=== PATIENT | female | born 1985 | race Caucasian/White ===

== ENCOUNTER 2023-08-25 08:55 | Emergency (ER) | payer OTHER, MEDICAID, SELFPAY ==
[2023-08-25] VITALS (10 sets, daily range): BP systolic 89–129; BP diastolic 50–60; PULSE 62–78; RESP 16–26; TEMP 36.6; O2SAT 94–98; BMI 33.4
--- NOTE | 2023-08-25 09:15 | ED.EXTPRO ---
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 She is now working 2 jobs. She presents today with right leg swelling and foot pain. She denies any injury. She noticed it 4 days ago she continue to walk on it and stand and go to work. However today her foot is quite swollen. The left foot is mildly swollen but does not hurt as bad. It is not red. She denies any fever. She denies any swelling or weight gain. She reports that she is unable to lie flat at night secondary to back pain. She denies any shortness of breath or chest pain. No fever chills. Denies any history blood clots. Related Data Previous Rx's Medication Instructions Recorded furosemide 20 mg tablet 20 mg PO DAILY #4 tabs 08/25/23 Allergies Allergy/AdvReac Type Severity Reaction Status Date / Time acetaminophen [From Vicodin] Allergy Verified 08/25/23 09:09 atomoxetine [From Strattera] Allergy Verified 08/25/23 09:09 diphenhydramine Allergy Verified 08/25/23 09:09 [From Benadryl] hydrocodone [From Vicodin] Allergy Verified 08/25/23 09:09 morphine Allergy Verified 08/25/23 09:09 Penicillins Allergy Verified 08/25/23 09:09 Patient History Social History Smoking Status: Current every day smoker Smoking Status: Current every day smoker tobacco type: cigarettes and vaping Substance Use Type: former substance user and marijuana Exam Initial Vital Signs Initial Vital Signs: Vital Signs Temperature 97.9 F 08/25/23 08:59 Pulse Rate 75 08/25/23 08:59 Respiratory Rate 16 08/25/23 08:59 Blood Pressure 116/55 L 08/25/23 08:59 Pulse Oximetry 96 08/25/23 08:59 Oxygen Delivery Method Room Air 08/25/23 08:59 GENERAL: Alert 37-year-old female appears slightly older than stated age HEENT: Head atraumatic,EOMI, pupils reactive, face symmetric, moist mucous membranes CARDIOVASCULAR: Regular rate and rhythm without murmurs, rubs or gallops. RESPIRATORY: Breath sounds equal bilaterally, no wheezes rales or rhonchi. ABDOMEN: Soft, nontender. Normoactive bowel sounds all 4 quadrants. No guarding or rebound. EXTREMITIES: Normal range of motion, no clubbing. Neurovascularly intact Right leg significantly more swollen than left leg distal pedal pulse present. No erythema. Bony abnormality NEUROLOGICAL: Alert and oriented x4.Normal gait and speech. Cranial nerves II through XII grossly intact. SKIN: Warm, dry, no laceration, no petechiae, no rashes or lesions. Course Orders Ordered: ED Orders 08/25/23 09:19 US periph venous low extrem rt Stat XR chest 1V Stat EKG-12 Lead Stat 08/25/23 09:38 Complete Blood Count AUTO DIFF Stat Comprehensive Metabolic Panel Stat D Dimer Stat Lipase Stat NT-proBNP (BNP-Adult 18+) Stat Troponin & CK Cardiac Panel Stat 08/25/23 10:08 PTT Partial Thromboplastin Ziyad Stat Prothrombin Time INR Stat 08/25/23 10:42 CT abdomen pelvis w con Stat Vital Signs Vital signs: Vital Signs - 8 hr 08/25/23 08:59 08/25/23 09:08 08/25/23 09:08 Temperature 97.9 F Pulse Rate 75 68 Respiratory Rate 16 Blood Pressure 116/55 L 129/60 Pulse Oximetry 96 98 Oxygen Delivery Method Room Air 08/25/23 09:30 08/25/23 09:30 08/25/23 10:00 Temperature Pulse Rate 78 69 Respiratory Rate 25 H Blood Pressure 118/59 L Pulse Oximetry 96 96 Oxygen Delivery Method 08/25/23 10:01 08/25/23 10:01 08/25/23 10:14 Temperature Pulse Rate 67 65 Respiratory Rate 22 24 Blood Pressure 95/50 L Pulse Oximetry 96 98 Oxygen Delivery Method 08/25/23 10:14 08/25/23 10:30 08/25/23 10:30 Temperature Pulse Rate 65 Respiratory Rate 18 Blood Pressure 101/59 L 104/54 L Pulse Oximetry 97 Oxygen Delivery Method 08/25/23 11:01 08/25/23 11:02 08/25/23 11:02 Temperature Pulse Rate 67 66 Respiratory Rate 26 H 23 Blood Pressure 106/55 L Pulse Oximetry 98 98 Oxygen Delivery Method 08/25/23 11:30 08/25/23 11:30 Temperature Pulse Rate 62 Respiratory Rate 18 Blood Pressure 89/54 L Pulse Oximetry 94 Oxygen Delivery Method MDM - Extremity (Nontraumatic) Lab Data 08/25/23 09:38 08/25/23 09:38 Labs: Lab Results 08/25/23 08/25/23 Range/Units 09:38 10:08 WBC 7.1 (4.5-11.0) X10^3/uL RBC 3.86 L (4.0-5.2) X10^6/uL Hgb 10.5 L (12.0-16.0) g/dL Hct 31.4 L (36-46) % MCV 81.3 (80-100) fL MCH 27.2 (26-34) PG MCHC 33.5 (30-36) % RDW 14.5 (11.6-14.8) % Plt Count 286 (150-400) X10^3/uL Neut % (Auto) 50.2 (50-75) % Lymph % (Auto) 35.2 (25-40) % [place] % (Auto) 7.4 (3-14) % Eos % (Auto) 6.2 H (2-4) % Baso % (Auto) 1.0 (0-2) % Neut # (Auto) 3500 (2208-7626) /uL Lymph # (Auto) 2500 (5338-7068) /uL [place] # (Auto) 500 (0-900) /uL Eos # (Auto) 400 (0-450) /uL Baso # (Auto) 100 (0-100) /uL PT 10.8 (10.1-12.7) SECONDS INR 0.9 (0.9-1.3) APTT 30 (26-36) SECONDS D-Dimer 461 (<500) ng/ml Sodium 134 L (137-145) mmol/L Potassium 4.1 (3.4-5.1) mmol/L Chloride 105 (98-107) mmol/L Carbon Dioxide 26 (22-32) mmol/L BUN 11 (7-17) mg/dL Creatinine 0.54 (0.52-1.04) mg/dL Estimated GFR > 60 (>60) mL/min BUN/Creatinine Ratio 20.4 (6-22) Glucose 92 (70-100) mg/dL Calcium 8.7 (8.4-10.2) mg/dL Total Bilirubin 0.1 L (0.2-1.3) mg/dL AST 18 (14-36) IU/L ALT 22 (<35) IU/L Alkaline Phosphatase 58 (38-126) U/L Total Creatine Kinase 97 (30-135) U/L Troponin I < 0.012 (0.01-0.034) ng/mL NT-Pro-B Natriuret Pep 461 H (<125) pg/mL Total Protein 5.9 L (6.3-8.2) g/dL Albumin 3.4 L (3.5-5.0) g/dL Globulin 2.5 (1.7-4.1) g/dL Albumin/Globulin Ratio 1.4 (1.0-2.8) Lipase 52 (23-300) U/L Point of Care Testing Test Results Negative Urine Dip Bedside Urine Glucose Negative Bedside Urine Bilirubin - Negative Bedside Urine Ketone - Negative Urine Specific [place] 1.005 Bedside Urine Occult Blood - Negative Bedside Urine pH 7.0 Bedside Urine Protein - Negative Bedside Urine Urobilinogen - Negative Bedside Urine Nitrite - Negative Bedside Urine Leukocytes ++ 125 Esterase MDM Narrative Medical decision making narrative: Patient 37-year-old female history of drug abuse presenting today with right leg swelling and pain. No fever the right leg is definitely more swollen than the left. Initial concern for DVT. Labs: No leukocytosis no anemia, D-dimer less than 500, BNP 460 1- troponin normal electrolytes imaging: Ultrasound negative for DVT chest x-ray negative. Abdominal CT does not show any intra-abdominal abnormality Patient presents today with right leg swelling and pain. Initial concern for DVT however ultrasound D-dimer negative, I think unlikely to be a DVT. CT abdomen pelvis done look for superior blockage. Which was negative. She does have some pitting edema in her left foot even though BNP is minimally elevated history of drug use will give her a few days of Lasix. Encouraged compression socks and elevation. Discharge Plan Departure Patient Disposition: Home Clinical Impression: Edema of lower extremity Instructions: Edema Activity Restrictions/Additional Instructions: *You have been diagnosed with swelling of leg *What to do: At this time elevate your legs wear compression socks. We will try on a few days water pill to help bring the swelling down. *Continue to take medications as directed Lasix 20 mg once a day for 4 days *Follow up with your primary care provider in 2-3 days or call [phone] *Return to ER if you should have increasing swelling pain redness chest pain shortness of breath abdominal or any new, worsening or concerning symptoms Prescriptions: New furosemide 20 mg tablet 20 mg PO DAILY Qty: 4 0RF Referrals: Miscellaneous,Doctor, MD [Primary Care Provider] - Stand Alone Forms: Patient Portal/API, Work Release Note
--- NOTE | 2023-08-25 09:19 | DI.RAD.S_ITS ---
PROCEDURE: XR CHEST 1V INDICATIONS: short of breath TECHNIQUE: One view of the chest was acquired. COMPARISON: None. FINDINGS: Surgical changes and devices: None. Lungs and pleura: Lungs are clear. No pleural effusions or pneumothorax. Mediastinum: Mediastinal contours appear normal. Heart size is normal. Bones and chest wall: No suspicious bony lesions. Overlying soft tissues appear unremarkable. IMPRESSION: Portable chest within normal limits for age. Approved by: Ricky Ochoa M.D. on 08/25/2023 at 8:35
--- NOTE | 2023-08-25 09:19 | DI.US.S_ITS ---
PROCEDURE: US PERIPH VENOUS LOW EXTREM RT INDICATIONS: swelling TECHNIQUE: Real-time imaging, as well as color and pulse Doppler interrogation, were performed of the lower extremity deep veins from the inguinal ligament to the popliteal fossa, with documentation of the visualized calf veins. COMPARISON: None. FINDINGS: The common femoral, femoral, popliteal, and the visualized calf veins are normally compressible, and free of intraluminal thrombus. Color and pulse Doppler demonstrate normal phasic intraluminal flow. There is normal augmentation response to distal compression maneuver. IMPRESSION: No findings of lower extremity deep venous thrombosis. Approved by: Ricky Ochoa M.D. on 08/25/2023 at 9:23
[2023-08-25 09:50] LABS: Add Manual Diff / Slide Review NO; Basophils Absolute Auto 100 /uL (0-100); Eosinophils Absolute Auto 400 /uL (0-450); Eosinophils Percent Auto 6.2 % (2-4); Hematocrit 31.4 % (36-46); Hemoglobin 10.5 g/dL (12.0-16.0); Lymphocytes Absolute Auto 2500 /uL (1100-4500); Lymphocytes Percent Auto 35.2 % (25-40); Mean Corpuscular HGB Conc 33.5 % (30-36); Mean Corpuscular Hemoglobin 27.2 PG (26-34); Mean Corpuscular Volume 81.3 fL (80-100); Monocytes Absolute Auto 500 /uL (0-900); Monocytes Percent Auto 7.4 % (3-14); Neutrophils Absolute Auto 3500 /uL (1500-7000); Neutrophils Percent Auto 50.2 % (50-75); Platelet Count 286 X10^3/uL (150-400); Red Blood Cell Count 3.86 X10^6/uL (4.0-5.2); Red Cell Distribution Width 14.5 % (11.6-14.8); White Blood Cell Count 7.1 X10^3/uL (4.5-11.0)
[2023-08-25 09:57] LABS: Alanine Aminotransferase 22 IU/L (<35); Albumin 3.4 g/dL (3.5-5.0); Albumin Globulin Ratio 1.4 (1.0-2.8); Alkaline Phosphatase 58 U/L (38-126); Aspartate Aminotransferase 18 IU/L (14-36); BUN Creatinine Ratio 20.4 (6-22); Bilirubin Total 0.1 mg/dL (0.2-1.3); Blood Urea Nitrogen 11 mg/dL (7-17); Calcium 8.7 mg/dL (8.4-10.2); Carbon Dioxide 26 mmol/L (22-32); Chloride 105 mmol/L (98-107); Creatine Kinase 97 U/L (30-135); Estimated Glomerular Filt Rate > 60 mL/min (>60); Globulin 2.5 g/dL (1.7-4.1); Glucose 92 mg/dL (70-100); HEMOLYSIS < 15 (0-50); Lipase 52 U/L (23-300); Potassium 4.1 mmol/L (3.4-5.1); Sodium 134 mmol/L (137-145); Total Protein 5.9 g/dL (6.3-8.2)
[2023-08-25 10:08] LABS: NT-proBNP (BNP-Adult 18+) 461 pg/mL (<125); Troponin I < 0.012 ng/mL (0.01-0.034)
[2023-08-25 10:22] LABS: INR 0.9 (0.9-1.3); Prothrombin Time 10.8 SECONDS (10.1-12.7)
[2023-08-25 10:24] LABS: PTT Partial Thromboplastin Tim 30 SECONDS (26-36)
[2023-08-25 10:36] LABS: D Dimer 461 ng/ml (<500)
--- NOTE | 2023-08-25 10:42 | DI.CT.S_ITS ---
PROCEDURE: CT ABDOMEN PELVIS W CON INDICATIONS: swelling, and Right leg swelling TECHNIQUE: After the administration of intravenous contrast, axial sections acquired from the lung bases to the pubic symphysis. Coronal and sagittal reformats were performed. For radiation dose reduction, the following was used: automated exposure control, adjustment of mA and/or kV according to patient size. COMPARISON: None. FINDINGS: Lower thorax: Mild bibasilar platelike atelectasis. Heart size normal. No hiatal hernia. Liver: Normal in size and attenuation. No contour deformity present. Biliary system: Calcified stones noted in the lumen of the gallbladder. No pericholecystic inflammatory change. No intra or extrahepatic bile duct dilation. Pancreas: Unremarkable without mass or inflammation evident. Spleen: Normal in size and density. Adrenals: Normal morphology and density. Reproductive system: Unremarkable as visualized. Physiologic endometrial thickening measures up to 1.3 cm Urinary system: Normal renal size and attenuation. No renal calculi, hydronephrosis, or solid mass present. Urinary bladder unremarkable. Gastrointestinal system: The bowel is unremarkable without evidence of bowel obstruction or inflammation. The stomach appears unremarkable. Moderate fecal debris throughout the colon Appendix: Normal appendix identified. No evidence of appendicitis. Peritoneal spaces: No mesenteric or retroperitoneal adenopathy. No free air. No free fluid. Vasculature: The IVC, aorta and iliac vasculature are unremarkable. Abdominal wall: Abdominal wall intact without evidence of ventral or inguinal hernias. Musculoskeletal: Normal bone mineralization. No acute fractures. Bilateral inguinal adenopathy measures up to 1.7 x 2.2 cm on the left IMPRESSION: 1. Moderate fecal debris throughout the colon without obstruction. 2. Bilateral inguinal adenopathy Approved by: Ricky Ochoa M.D. on 08/25/2023 at 10:17
== END 2023-08-25 11:52 | disposition home or self-care (01) ==
PROVIDERS: Emergency Provider Emergency Medicine
DX: R60.0 Localized edema (principal); R06.02 Shortness of breath
CPT/HCPCS: 36415; 71045; 74177; 80053; 81003; 81025; 82550; 83690; 83880; 84484; 85025; 85379; 85610; 85730; 93005; 93010; 93971; 99283; 99284; Q9967

== ENCOUNTER → 2023-11-07 15:35 | Outpatient (CLI) | payer OTHER, MEDICAID, SELFPAY ==
[2023-11-07 20:15] LABS: Appearance Urine UA CLEAR; Bilirubin Urine UA NEGATIVE (NEGATIVE); Color Urine UA YELLOW; Glucose Urine UA NEGATIVE (Negative); Ketones Urine UA NEGATIVE (NEGATIVE); Leukocyte Esterase Urine UA 2+ (NEGATIVE); Nitrite Urine UA NEGATIVE (Negative); Occult Blood Urine UA NEGATIVE (Negative); Protein Urine UA NEGATIVE (Negative); Specific Gravity Urine UA 1.025 (1.000-1.035); Urobilinogen Urine UA 0.2 E.U./dL (0.2)
[2023-11-07 20:24] LABS: Bacteria Urine Occasional (0-1); Culture Indicated Urine Cult Not Indicated; RBC Urine None Seen (0-5/HPF); Squamous Epithelial Cell Urine 1-5 /HPF (0-5/HPF); WBC Urine 0-1/HPF (0-5/HPF)
== END ==
PROVIDERS: PCP Family Medicine; Visit Provider Family Medicine
DX: Z11.3 Encounter for screening for infections with a predominantly sexual mode of transmission (principal); N89.8 Other specified noninflammatory disorders of vagina
CPT/HCPCS: 81001; 87210

== ENCOUNTER 2023-12-07 14:43 | Emergency (ER) | payer OTHER, MEDICAID, SELFPAY ==
[2023-12-07] VITALS (11 sets, daily range): BP systolic 102–136; BP diastolic 55–80; PULSE 75–87; RESP 18–25; TEMP 36.7; O2SAT 95–100; BMI 38.0
--- NOTE | 2023-12-07 14:44 | DI.RAD.S_ITS ---
PROCEDURE: XR CHEST 1V INDICATIONS: had CPR after overdose TECHNIQUE: One view of the chest was acquired. COMPARISON: [facility], CR, XR CHEST 1 VIEW, 04/23/2019, 21:08. [facility], CR, XR CHEST 1V, 08/25/2023, 9:16. FINDINGS: Surgical changes and devices: None. Lungs and pleura: An incomplete inspiratory result is noted, causing a crowded appearance to the lung markings. No focal infiltrates are seen. No pneumothorax or significant pleural effusions are seen. Mediastinum: Mediastinal contours appear normal. Heart size is normal. Bones and chest wall: No suspicious bony lesions. Overlying soft tissues appear unremarkable. IMPRESSION: No acute cardiopulmonary abnormality is seen. Dictated by: Juan Antonio Woods M.D. on 12/07/2023 at 14:20 Approved by: Juan Antonio Woods M.D. on 12/07/2023 at 14:21
--- NOTE | 2023-12-07 14:52 | ED.GENADULT ---
HPI - General Adult General Chief complaint: Toxicology Problem Stated complaint: overdose Time Seen by Provider: 12/07/23 14:44 Source: patient and EMS Mode of arrival: EMS Limitations: no limitations History of Present Illness HPI narrative: Patient is a 38-year-old female. He was brought in by EMS for evaluation of an overdose. Now that the patient is more awake she states she did smoke fentanyl. She has been sober for approximately 8 months. She states that a ex-boyfriend came over who still uses and she decided to use. She is also on Suboxone twice a day. She has only had it once today. There was report that she did receive bystander CPR. Police arrived. She did receive 1 dose of intranasal Narcan by police. EMS states that this seemed to resolve her symptoms. She received no further cardiopulmonary resuscitation. She was alert and oriented. There was drug paraphernalia around her. Here in the ER she states she did smoke fentanyl. Related Data Home Medications Medication Instructions Recorded Confirmed amitriptyline 150 mg tablet 150 mg PO ONCE PM 11/07/23 11/07/23 buprenorphine 8 mg-naloxone 2 mg 1 tab sublingual DAILY PRN 11/07/23 11/07/23 sublingual tablet hydroxyzine pamoate 100 mg capsule 100 mg PO 3XD 11/07/23 11/07/23 paliperidone 6 mg tablet,extended 6 mg PO ONCE PM 11/07/23 11/07/23 release 24 hr propranolol 20 mg tablet 20 mg PO 3XD 11/07/23 11/07/23 trazodone 150 mg tablet 150 mg PO ONCE PM 11/07/23 11/07/23 Previous Rx's Medication Instructions Recorded furosemide 20 mg tablet 20 mg PO DAILY #4 tabs 08/25/23 metronidazole 500 mg tablet 500 mg PO Q12H #14 tabs 11/08/23 naloxone 4 mg/actuation nasal 4 mg intranasal Q2M PRN opioid 12/07/23 spray (Narcan) overdose #2 ea Allergies Allergy/AdvReac Type Severity Reaction Status Date / Time acetaminophen [From Vicodin] Allergy Verified 11/07/23 15:08 atomoxetine [From Strattera] Allergy Verified 11/07/23 15:08 diphenhydramine Allergy Verified 11/07/23 15:08 [From Benadryl] hydrocodone [From Vicodin] Allergy Verified 11/07/23 15:08 morphine Allergy Verified 11/07/23 15:08 Penicillins Allergy Verified 11/07/23 15:08 Review of Systems Constitutional Constitutional: Reports system reviewed and no additional complaints, except as documented Cardiovascular Cardiovascular: Reports system reviewed and no additional complaints, except as documented Respiratory Respiratory: Reports system reviewed and no additional complaints, except as documented Gastrointestinal Gastrointestinal: Reports system reviewed and no additional complaints, except as documented Integumentary/Breasts Skin/Breast: Reports system reviewed and no additional complaints, except as documented Neurologic Neurologic: Reports system reviewed and no additional complaints, except as documented Patient History Medical History Acne (~2002) Sleep apnea (~2006) Substance abuse (~2022) Schizoaffective disorder (~2022) PTSD (post-traumatic stress disorder) (~2010) Personality disorder (~2022) Depression (~2002) History of bipolar disorder (~2000) Anxiety (~2004) Restless leg syndrome (~2018) Migraines (~2006) Headache (~2002) ADHD (~2016) Shoulder pain (~2017) Fractures (~2018) Foot pain (~2022) Fibromyalgia (~2012) Chronic back pain (~2012) Carpal tunnel syndrome (~2012) Ankle pain (~2014) Anemia (~2002) Hearing loss (~2018) Painful menstrual periods (~2019) Genital warts (~2000) History of urinary incontinence (~2018) GERD (gastroesophageal reflux disease) (~2002) History of ETOH abuse Bleeding after intercourse Painful intercourse Heavy menstrual bleeding Abdominal cramping Hx of opioid abuse Hx of amphetamine abuse History of intravenous drug abuse Polydipsia Heat intolerance History of syphilis History of trichomonal vaginitis History of sexually transmitted disease Vaginal discharge Surgical History (Updated 11/26/23 @ 20:13 by Karen Waddell) Anesthesia History of sinus surgery (~2007) History of carpal tunnel release (~2014) History of section History of tonsillectomy (~1999) Family History (Updated 11/26/23 @ 20:15 by Karen Waddell) Mother Diabetes mellitus Hyperlipidemia Hypertension Brother Mental health problem Grandmother Diabetes mellitus History of heart disease Hypertension Hyperlipidemia Mental health problem Social History Smoking Status: Current every day smoker Smoking Status: Current every day smoker tobacco type: cigarettes and vaping Substance Use Type: former substance user and marijuana Exam Initial Vital Signs Initial Vital Signs: Vital Signs Pulse Rate 76 12/07/23 14:47 Pulse Oximetry 100 12/07/23 14:47 HENMT Head: normal to inspection and normocephalic Chest Chest: No crepitus and No tenderness Resp Effort & Inspection: normal respiratory effort Auscultation: clear to auscultation bilaterally Cardio Rate: regular rate Rhythm: regular rhythm Skin General: no rashes or lesions noted Neuro General: patient alert, patient awake, patient oriented x3 and moves all extremities Extrem General: normal to inspection and capillary refill normal Course Orders Ordered: ED Orders 12/07/23 14:44 XR chest 1V Stat 12/07/23 15:15 Basic Metabolic Panel Stat Complete Blood Count AUTO DIFF Stat Ethanol (ETOH) Stat Sodium Chloride (Normal Saline 0.9%) 1,000 mls @ 125 mls/hr IV CONT JIMMIE Last Admin: 12/07/23 15:16 Dose: Not Given Documented By: RB Vital Signs Vital signs: Vital Signs - 8 hr 12/07/23 14:47 12/07/23 14:48 12/07/23 14:48 Temperature Pulse Rate 76 75 Respiratory Rate Blood Pressure 136/80 Pulse Oximetry 100 100 Oxygen Delivery Method 12/07/23 14:53 12/07/23 15:00 12/07/23 15:01 Temperature 98.1 F Pulse Rate 87 80 79 Respiratory Rate 18 25 H 19 Blood Pressure 122/74 Pulse Oximetry 98 98 100 Oxygen Delivery Method Room Air 12/07/23 15:01 12/07/23 15:15 12/07/23 15:15 Temperature Pulse Rate 79 Respiratory Rate 21 Blood Pressure 122/74 112/56 L Pulse Oximetry Oxygen Delivery Method 12/07/23 15:30 12/07/23 15:30 12/07/23 15:45 Temperature Pulse Rate 81 79 Respiratory Rate 19 21 Blood Pressure 103/55 L Pulse Oximetry 97 100 Oxygen Delivery Method 12/07/23 15:45 12/07/23 16:00 12/07/23 16:00 Temperature Pulse Rate 79 Respiratory Rate 18 Blood Pressure 105/56 L 102/55 L Pulse Oximetry 96 Oxygen Delivery Method 12/07/23 16:15 12/07/23 16:15 Temperature Pulse Rate 78 Respiratory Rate 19 Blood Pressure 107/58 L Pulse Oximetry 95 Oxygen Delivery Method Medical Decision Making Lab Data Lab results reviewed: Yes I reviewed the patient's lab results. 12/07/23 15:15 12/07/23 15:15 Labs: Lab Results 12/07/23 Range/Units 15:15 WBC 7.5 (4.5-11.0) X10^3/uL RBC 4.39 (4.0-5.2) X10^6/uL Hgb 11.9 L (12.0-16.0) g/dL Hct 35.9 L (36-46) % MCV 81.8 (80-100) fL MCH 27.0 (26-34) PG MCHC 33.0 (30-36) % RDW 15.2 H (11.6-14.8) % Plt Count 302 (150-400) X10^3/uL Neut % (Auto) 60.4 (50-75) % Lymph % (Auto) 28.0 (25-40) % [place] % (Auto) 6.0 (3-14) % Eos % (Auto) 4.9 H (2-4) % Baso % (Auto) 0.7 (0-2) % Neut # (Auto) 4500 (8392-1721) /uL Lymph # (Auto) 2100 (8269-1550) /uL [place] # (Auto) 400 (0-900) /uL Eos # (Auto) 400 (0-450) /uL Baso # (Auto) 100 (0-100) /uL Sodium 136 L (137-145) mmol/L Potassium 4.1 (3.4-5.1) mmol/L Chloride 100 (98-107) mmol/L Carbon Dioxide 28 (22-32) mmol/L BUN 12 (7-17) mg/dL Creatinine 0.75 (0.52-1.04) mg/dL Estimated GFR > 60 (>60) mL/min BUN/Creatinine Ratio 16.0 (6-22) Glucose 124 H (70-100) mg/dL Calcium 9.1 (8.4-10.2) mg/dL Ethyl Alcohol < 10 ( - 10) mg/dL Imaging Data Chest x-ray: Radiologist's Impression: PROCEDURE: XR CHEST 1V INDICATIONS: had CPR after overdose TECHNIQUE: One view of the chest was acquired. COMPARISON: [facility], CR, XR CHEST 1 VIEW, 04/23/2019, 21:08. [facility], CR, XR CHEST 1V, 08/25/2023, 9:16. FINDINGS: Surgical changes and devices: None. Lungs and pleura: An incomplete inspiratory result is noted, causing a crowded appearance to the lung markings. No focal infiltrates are seen. No pneumothorax or significant pleural effusions are seen. Mediastinum: Mediastinal contours appear normal. Heart size is normal. Bones and chest wall: No suspicious bony lesions. Overlying soft tissues appear unremarkable. IMPRESSION: No acute cardiopulmonary abnormality is seen MDM Narrative Medical decision making narrative: Patient was observed for greater than 2 hours. Vital signs normal. Tolerating oral intake. Has no reoccurrence of drowsiness. Her is at bedside. She states that she is in his situation now where her can watch her. They do have Narcan at home. I gave her another prescription for Narcan. Patient's states he can watch over her. Will discharge patient home. Discharge Plan Departure Patient Disposition: Home Clinical Impression: Overdose of fentanyl Instructions: DI for Opioid Use Disorder, Naloxone for Opiate Overdose - [facility] Activity Restrictions/Additional Instructions: A prescription for Narcan was sent to [facility]. I recommend that you fill this prescription and keep Narcan readily available. You are being discharged with your . I recommend that you were observe for the next several hours. If you start to become drowsy again you can Re administered Narcan. Return to the emergency department for new or worsening symptoms. Prescriptions: New naloxone [Narcan] 4 mg/actuation spray,non-aerosol 4 mg intranasal Q2M PRN (Reason: opioid overdose) Qty: 2 2RF Rx Instructions: spray 1 dose into ONE nostril; alternate nostrils w each dose until help arrives No Action buprenorphine-naloxone 8-2 mg tablet, sublingual 1 tab sublingual DAILY PRN propranolol 20 mg tablet 20 mg PO 3XD paliperidone 6 mg tablet extended release 24hr 6 mg PO ONCE PM trazodone 150 mg tablet 150 mg PO ONCE PM amitriptyline 150 mg tablet 150 mg PO ONCE PM hydroxyzine pamoate 100 mg capsule 100 mg PO 3XD metronidazole 500 mg tablet 500 mg PO Q12H Qty: 14 0RF furosemide 20 mg tablet 20 mg PO DAILY Qty: 4 0RF Referrals: Chichi Donovan MD [Primary Care Provider] - Stand Alone Forms: Patient Portal/API
--- NOTE | 2023-12-07 15:14 | PC.NURSE ---
Patient has known IV drug use in past and fellow RN attempted IV in left AC. Charge nurse asked provider if he was okay if we had a blood draw and gave patient fluids by mouth. Provider agreed. Lab called to come draw blood and patient given ice water approved by provider.
[2023-12-07 15:25] LABS: Add Manual Diff / Slide Review NO; Basophils Absolute Auto 100 /uL (0-100); Basophils Percent Auto 0.7 % (0-2); Eosinophils Absolute Auto 400 /uL (0-450); Eosinophils Percent Auto 4.9 % (2-4); Hematocrit 35.9 % (36-46); Hemoglobin 11.9 g/dL (12.0-16.0); Lymphocytes Absolute Auto 2100 /uL (1100-4500); Mean Corpuscular Volume 81.8 fL (80-100); Monocytes Absolute Auto 400 /uL (0-900); Neutrophils Absolute Auto 4500 /uL (1500-7000); Neutrophils Percent Auto 60.4 % (50-75); Platelet Count 302 X10^3/uL (150-400); Red Blood Cell Count 4.39 X10^6/uL (4.0-5.2); Red Cell Distribution Width 15.2 % (11.6-14.8); White Blood Cell Count 7.5 X10^3/uL (4.5-11.0)
[2023-12-07 15:35] LABS: Blood Urea Nitrogen 12 mg/dL (7-17); Calcium 9.1 mg/dL (8.4-10.2); Carbon Dioxide 28 mmol/L (22-32); Chloride 100 mmol/L (98-107); Estimated Glomerular Filt Rate > 60 mL/min (>60); Ethanol (ETOH) < 10 mg/dL; Glucose 124 mg/dL (70-100); HEMOLYSIS < 15 (0-50); Potassium 4.1 mmol/L (3.4-5.1); Sodium 136 mmol/L (137-145)
--- NOTE | 2023-12-07 16:40 | PC.NURSE ---
This RN asked provider about prepack of Narcan. Provider states that they have narcan at home but has sent a prescription to pickup.
== END 2023-12-07 16:40 | disposition home or self-care (01) ==
PROVIDERS: Emergency Provider Emergency Medicine; PCP Family Medicine
DX: T40.411A Poisoning by fentanyl or fentanyl analogs, accidental (unintentional), initial encounter (principal)
CPT/HCPCS: 36415; 71045; 80048; 80320; 85025; 99283; 99284

== ENCOUNTER → 2024-04-15 14:48 | Outpatient (CLI) | payer OTHER, MEDICAID, SELFPAY ==
[2024-04-15 16:25] LABS: Hemoglobin A1C% w Est Avg Glu 5.3 % (4.0-6.0)
[2024-04-15 17:18] LABS: TSH w/ Reflex to FT4 1.15 uIU/mL (0.47-4.68)
[2024-04-15 21:00] LABS: HIV 1 & 2 Ab/Ag 4th Gen Combo NEGATIVE (NEGATIVE)
[2024-04-16 05:14] LABS: RPR Screen Non Reactive (Non Reactive)
== END ==
PROVIDERS: PCP Family Medicine; Referring Provider Family Medicine; Visit Provider Family Medicine
DX: Z13.9 Encounter for screening, unspecified (principal); Z83.3 Family history of diabetes mellitus; A53.9 Syphilis, unspecified; N89.8 Other specified noninflammatory disorders of vagina
CPT/HCPCS: 36415; 83036; 84443; 86592; 87389

== ENCOUNTER → 2024-06-11 13:06 | Outpatient (CLI) | payer OTHER, MEDICAID, SELFPAY ==
--- NOTE | 2024-06-11 13:08 | DI.RAD.S_ITS ---
PROCEDURE: XR LUMBAR SPINE 2-3V INDICATIONS: Low Back Pain TECHNIQUE: 3 views of the lumbar spine were acquired. COMPARISON: None. FINDINGS: Bones: 5 [id number]-[id number] vertebrae are present. There is minimal levoscoliosis.. No vertebral body compression fractures. No suspicious bony lesions. Soft tissues: Overlying bowel gas pattern is normal. Oval calcification right upper quadrant the abdomen, likely representing gallstone. IMPRESSION: Minimal levoscoliosis. Probable cholelithiasis. Dictated by: Farooq Ogden M.D. on 06/11/2024 at 17:08 Approved by: Farooq Ogden M.D. on 06/11/2024 at 17:10
== END ==
PROVIDERS: PCP Family Medicine; Referring Provider Family Medicine; Visit Provider Family Medicine
DX: M54.50 Low back pain, unspecified (principal)
CPT/HCPCS: 72100

== ENCOUNTER → 2024-09-09 12:54 | Outpatient (CLI) | payer OTHER, MEDICAID, SELFPAY ==
--- NOTE | 2024-09-09 12:56 | DI.US.S_ITS ---
PROCEDURE: US PELVIC COMPLETE INDICATIONS: PERIMENOPAUSAL; AMENORRHEA X 1 YR TECHNIQUE: Real-time scanning was performed of the pelvic organs, with image documentation. Additional endovaginal scanning was necessary due to incomplete visualization of the adnexal and endometrial structures by transabdominal scanning. COMPARISON: None. FINDINGS: Uterus: Uterus is retroverted and normal in size at 5.1 x 3.6 x 4.3 cm. The myometrium is homogeneous. The endometrium measures 3.8 mm combined thickness. Ovaries: The right ovary measures 0.9 x 3.2 x 1.9 cm, with a calculated ovarian volume of 6.2 cc. The left ovary measures 2.8 x 2.5 x 1.1 cm, with a calculated ovarian volume of 3.9 cc. The ovaries have a normal sonographic appearance. Less than 12 follicles can be seen in each ovary. No adnexal masses are seen. Other: No pathologic free abdominal or pelvic fluid. IMPRESSION: Normal ultrasound of the pelvis Approved by: Ricky Ochoa M.D. on 09/09/2024 at 17:54
[2024-09-09 14:07] LABS: Prolactin 79.8 ng/mL (3.0-18.6)
[2024-09-09 14:21] LABS: TSH w/ Reflex to FT4 1.87 uIU/mL (0.47-4.68)
[2024-09-09 16:57] LABS: Follicle Stimulating Hormone 4.22 mIU/mL
[2024-09-09 17:12] LABS: Estradiol, Total 13.4 pg/mL
== END ==
PROVIDERS: Family Provider Family Medicine; PCP Family Medicine; Referring Provider Obstetrics & Gynecology; Visit Provider Obstetrics & Gynecology
DX: N93.9 Abnormal uterine and vaginal bleeding, unspecified (principal); N95.1 Menopausal and female climacteric states
CPT/HCPCS: 76830; 76856; 82670; 83001; 83002; 84146; 84443

== ENCOUNTER 2024-09-22 13:45 | Outpatient (RCR) | payer OTHER, MEDICAID, SELFPAY ==
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
--- NOTE | 2024-09-17 15:45 | PT-OP ANOTE ---
Left message regarding no show policy. Also, left time and date of next appointment.
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
--- NOTE | 2024-09-22 16:31 | PT-OP ANOTE ---
Phoned patient regarding HEP copy with band resistance change was not handed out today with other HEP handout. Patient agreeable to have HEP handout mailed, and also verbally reviewed which exercises to use chenega green level 3 band.
--- NOTE | 2024-10-07 15:26 | PT-OP ANOTE ---
Left message regarding no show policy, left motel front desk clerk phone number advising patient to call in if there is a serious reason why she is not here today, left time and date of next appointment, but again advised patient of NS policy and likely discharge due to this is second no show. As patient lives close to facility left message to come over now if able.
--- NOTE | 2024-10-08 17:56 | PT-OP ANOTE ---
Called pt and VM left re: 2 no shows and informed of DC d/t noncompliance policy and cancellation of further visits. encouraged to cont HEP and talk to provider for further referral as needed
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
== END 2024-10-14 10:53 | disposition home or self-care (01) ==
LOC: PHYS 13:45
PROVIDERS: Family Provider Family Medicine; PCP Family Medicine; Referring Provider Family Medicine; Visit Provider Family Medicine
DX: M25.551 Pain in right hip (principal); M25.552 Pain in left hip; N39.41 Urge incontinence; M25.562 Pain in left knee; G89.29 Other chronic pain; M54.9 Dorsalgia, unspecified
CPT/HCPCS: 97110; 97112; 97140; 97162; 97535

== ENCOUNTER → 2024-10-29 15:23 | Outpatient (CLI) | payer OTHER, MEDICAID, SELFPAY ==
--- NOTE | 2024-10-29 15:24 | DI.US.S_ITS ---
PROCEDURE: US PELVIC COMPLETE INDICATIONS: Dysmenorrhea TECHNIQUE: Real-time scanning was performed of the pelvic organs, with image documentation. Additional endovaginal scanning was necessary due to incomplete visualization of the adnexal and endometrial structures by transabdominal scanning. COMPARISON: [facility], , US PELVIC COMPLETE, 09/09/2024, 13:04. FINDINGS: Uterus: Uterus is retroverted and normal in size at 8.1 x 5.2 x 3.3 cm. The myometrium is homogeneous. The endometrium measures 3 mm combined thickness. Small focal area of fluid within the lower uterine endometrial canal measuring 9 x 12 x 7 mm. This appears to be in the area of prior scar, there is only 3 mm of myometrium anterior to the fluid. Ovaries: The right ovary measures 3.1 x 1.9 x 1.8 cm, with a calculated ovarian volume of 5.5 cc. The left ovary measures 2.3 x 2.2 x 1.6 cm, with a calculated ovarian volume of 0.2 cc. The ovaries have a normal sonographic appearance. Less than 12 follicles can be seen in each ovary. No adnexal masses are seen. Other: No pathologic free abdominal or pelvic fluid. IMPRESSION: scar is noted with adjacent small focal area of endometrial fluid measuring up to 12 mm and thinning of the overlying myometrium which measures 3 mm in thickness. Developing dehiscence is not excluded. Recommend gynecology consultation and attention on follow-up ultrasounds. Ovaries are normal in appearance. We strive to produce accurate, complete, and clear reports of imaging services. To assist us in improving patient care, this report was composed using standard report templates and voice recognition software. Therefore, it may contain abnormal punctuation, insertions and/or omissions. Occasional wrong-word or sound-alike substitutions may occur. Though we review the report and make efforts to correct it, we do recommend that the report be read carefully in proper context to recognize any text inaccuracies. Dictated by: Tad Sainz M.D. on 10/30/2024 at 9:12 Approved by: Tad Sainz M.D. on 10/30/2024 at 9:15
== END ==
PROVIDERS: Family Provider Family Medicine; PCP Family Medicine; Referring Provider Obstetrics & Gynecology; Visit Provider Obstetrics & Gynecology
DX: N94.6 Dysmenorrhea, unspecified (principal); N85.A Isthmocele
CPT/HCPCS: 76830; 76856

== ENCOUNTER → 2024-12-16 17:08 | Outpatient (CLI) | payer OTHER, SELFPAY ==
--- NOTE | 2024-12-16 17:09 | DI.MRI.S_ITS ---
PROCEDURE: MR LUMBAR SPINE WO CON INDICATIONS: LUMBAR FACET ARTHROPATHY,STRAIN,RADICULOPATHY TECHNIQUE: Noncontrast sagittal T1 spin echo and T2 fast echo, sagittal STIR, and T2 fast spin echo through the lumbar spine. In cases with scoliosis, additional coronal T2 fast spin echo may be performed. COMPARISON: None. FINDINGS: Image quality: Excellent. Alignment and Curvature: There is normal bony alignment. Bone Marrow: Marrow is of normal overall signal. No acute vertebral body compression fractures. Spinal Cord: Conus medullaris terminates at the L1 level. Visualized cord demonstrates normal signal and size. Paraspinous Soft Tissues: No paravertebral masses. T12-L1: Normal appearance. L1-L2: Normal appearance. L2-L3: No central or foraminal stenosis L3-L4: Disc bulge and arthropathy. Mild central stenosis. No foraminal stenosis L4-L5: Disc bulge and arthropathy. Mild central stenosis. No foraminal stenosis L5-S1: Arthropathy. No central stenosis. No foraminal stenosis. IMPRESSION: Multilevel hypertrophic arthropathy in the lower lumbar spine without significant central or foraminal stenosis throughout the exam Approved by: Ricky Ochoa M.D. on 12/17/2024 at 12:15
== END ==
LOC: MRI 17:08
PROVIDERS: Family Provider Family Medicine; PCP Family Medicine; Referring Provider Physician Assistant Surgical; Visit Provider Physician Assistant Surgical
DX: S39.012A Strain of muscle, fascia and tendon of lower back, initial encounter (principal); M47.26 Other spondylosis with radiculopathy, lumbar region; M47.27 Other spondylosis with radiculopathy, lumbosacral region; X58.XXXA Exposure to other specified factors, initial encounter
CPT/HCPCS: 72148

== ENCOUNTER 2025-08-09 00:55 | Emergency (ER) | payer OTHER, SELFPAY ==
[2025-08-09] VITALS (17 sets, daily range): BP systolic 84–147; BP diastolic 50–82; PULSE 63–80; RESP 16–30; TEMP 36.4; O2SAT 91–100; BMI 42.5
--- NOTE | 2025-08-09 02:12 | DI.RAD.S_ITS ---
PROCEDURE: XR CHEST 1V INDICATIONS: Chest Pain TECHNIQUE: One view of the chest was acquired. COMPARISON: [facility], CR, XR CHEST 1V, 12/07/2023, 14:51. [facility], CR, XR CHEST 1V, 08/25/2023, 9:16. FINDINGS: Surgical changes and devices: Multiple EKG leads overlie the thorax. Lungs and pleura: Lungs are clear. No pleural effusions or pneumothorax. Mediastinum: Mediastinal contours appear normal. Heart size is normal. Bones and chest wall: No suspicious bony lesions. Overlying soft tissues appear unremarkable. IMPRESSION: No acute cardiopulmonary abnormality is seen. Dictated by: Екатерина Nation M.D. on 08/09/2025 at 8:15 Approved by: Екатерина Nation M.D. on 08/09/2025 at 8:18
--- NOTE | 2025-08-09 02:24 | EKG_ITS ---
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
[2025-08-09 02:33] LABS: Add Manual Diff / Slide Review NO; Hematocrit 39.0 % (36-46); Hemoglobin 13.0 g/dL (12.0-16.0); Lymphocytes Absolute Auto 3400 /uL (1100-4500); Mean Corpuscular HGB Conc 33.3 % (30-36); Mean Corpuscular Hemoglobin 27.2 PG (26-34); Mean Corpuscular Volume 81.5 fL (80-100); Platelet Count 353 X10^3/uL (150-400)
[2025-08-09 02:41] LABS: HEMOLYSIS < 15 (0-50)
[2025-08-09 02:45] LABS: Alanine Aminotransferase 25 IU/L (<35); Alkaline Phosphatase 86 U/L (38-126); Blood Urea Nitrogen 9 mg/dL (7-17); Carbon Dioxide 23 mmol/L (22-32); Creatine Kinase 58 U/L (30-135); Estimated Glomerular Filt Rate > 60 mL/min (>60)
--- NOTE | 2025-08-09 02:47 | ED.FALL ---
HPI - Fall General Chief Complaint: Fall Stated Complaint: Syncope, seizure, Low blood sugar, stomach pain Time Seen by Provider: 08/09/25 02:14 Source: patient Mode of arrival: Wheelchair History of Present Illness HPI Narrative: 39-year-old female with chart history PTSD, schizoaffective disorder, personality disorder bipolar disorder, ADHD, fibromyalgia, prior alcohol use, prior opiate abuse, prior history of IV drug use. Tonight felt dizzy and passed out from standing position, believes that she struck her head, has head and neck pain and back pain. She has chest discomfort, unclear if this preceded or was subsequent to her ground level fall. Denies recent alcohol or drug use. Denies withdrawal symptoms, tremulousness, fevers, chills, diarrhea. Related Data Home Medications ?Medication ?Instructions ?Recorded ?Confirmed amitriptyline 150 mg tablet 150 mg PO ONCE PM 11/07/23 12/23/24 buprenorphine 8 mg-naloxone 2 mg 1 tab sublingual DAILY PRN 11/07/23 12/23/24 sublingual tablet hydroxyzine pamoate 100 mg capsule 100 mg PO 3XD 11/07/23 12/23/24 paliperidone 6 mg tablet,extended 6 mg PO ONCE PM 11/07/23 12/23/24 release 24 hr propranolol 20 mg tablet 20 mg PO 3XD 11/07/23 12/23/24 lisdexamfetamine 30 mg capsule 30 mg PO DAILY 06/11/24 12/23/24 (Vyvanse) Previous Rx's ?Medication ?Instructions ?Recorded naloxone 4 mg/actuation nasal 4 mg intranasal Q2M PRN opioid 12/07/23 spray (Narcan) overdose #2 ea nicotine 7 mg/24 hr daily 1 patch transdermal Q24H #14 ea 05/14/24 transdermal patch trazodone 150 mg tablet 150 mg PO ONCE PM #90 tabs 05/14/24 cetirizine 10 mg tablet 10 mg PO DAILY PRN for allergies 07/07/24 #90 tabs famotidine 10 mg tablet 10 mg PO DAILY PRN for heartburn 12/30/24 #60 tabs cyclobenzaprine 10 mg tablet 10 mg PO TID PRN muscle spasm #90 04/29/25 tabs meloxicam 15 mg tablet 15 mg PO DAILY #90 tabs 04/29/25 naloxone 4 mg/actuation nasal spray 4 mg intranasal Q2M PRN opioid 08/09/25 overdose #2 ea Allergies Allergy/AdvReac Type Severity Reaction Status Date / Time acetaminophen (From Vicodin) Allergy Verified 08/09/25 01:05 atomoxetine (From Strattera) Allergy Verified 08/09/25 01:05 diphenhydramine (From Allergy Verified 08/09/25 01:05 Benadryl) hydrocodone (From Vicodin) Allergy Verified 08/09/25 01:05 morphine Allergy Verified 08/09/25 01:05 Penicillins Allergy Verified 08/09/25 01:05 Patient History Medical History (Updated 08/09/25 @ 05:10 by Billy Coello MD) Hip pain Urinary leakage Knee pain Seasonal allergies Weight gain Nicotine use disorder Acne (~2002) Sleep apnea (~2006) Substance abuse (~2022) Schizoaffective disorder (~2022) PTSD (post-traumatic stress disorder) (~2010) Personality disorder (~2022) Depression (~2002) History of bipolar disorder (~2000) Anxiety (~2004) Restless leg syndrome (~2018) Migraines (~2006) Headache (~2002) ADHD (~2016) Shoulder pain (~2017) Fractures (~2018) Foot pain (~2022) Fibromyalgia (~2012) Chronic back pain (~2012) Carpal tunnel syndrome (~2012) Ankle pain (~2014) Anemia (~2002) Hearing loss (~2018) Painful menstrual periods (~2019) Genital warts (~2000) History of urinary incontinence (~2018) GERD (gastroesophageal reflux disease) (~2002) History of ETOH abuse Bleeding after intercourse Painful intercourse Heavy menstrual bleeding Abdominal cramping Hx of opioid abuse Hx of amphetamine abuse History of intravenous drug abuse Polydipsia Heat intolerance History of syphilis History of trichomonal vaginitis History of sexually transmitted disease Vaginal discharge Surgical History (Updated 11/26/23 @ 20:13 by Karen Waddell) Anesthesia History of sinus surgery (~2007) History of carpal tunnel release (~2014) History of section History of tonsillectomy (~1999) Family History (Updated 11/26/23 @ 20:15 by Karen Waddell) Mother Diabetes mellitus Hyperlipidemia Hypertension Brother Mental health problem Grandmother Diabetes mellitus History of heart disease Hypertension Hyperlipidemia Mental health problem Social History (Reviewed 12/07/23 @ 15:00 by YOLETTE Vuong Smoking Status: Current every day smoker Smoking Status: Current every day smoker tobacco type: cigarettes and vaping Exam Narrative Exam Narrative: GENERAL: Well-developed patient, in mild distress. HEAD: Atraumatic. Normocephalic. EYES: Pupils equal round and reactive. Extraocular motions intact. No scleral icterus. No injection or drainage. ENT: Nose without bleeding, purulent drainage. Throat without erythema, tonsillar hypertrophy or exudate. Airway patent. NECK: Trachea midline. Non tender CARDIOVASCULAR: Regular rate and rhythm without murmurs, gallops, or rubs. RESPIRATORY: Clear to auscultation. Breath sounds equal bilaterally. No wheezes, rales, or rhonchi. GASTROINTESTINAL: Abdomen soft, non-tender, nondistended. EXTREMITIES: No edema or joint tenderness. BACK: Nontender without deformity or crepitance. No flank tenderness. NEURO: AOx3. Motor functions grossly nonfocal. SKIN: No rash or erythema of visible areas Initial Vital Signs Initial Vital Signs: Vital Signs Temperature 97.5 F L 08/09/25 01:05 Pulse Rate 72 08/09/25 01:05 Respiratory Rate 16 08/09/25 01:05 Blood Pressure 86/52 L 08/09/25 01:05 Pulse Oximetry 95 08/09/25 01:05 Oxygen Delivery Method Room Air 08/09/25 01:05 Course Orders Ordered: Discontinued Medications Sodium Chloride (Normal Saline 0.9%) 1,000 mls @ 1,000 mls/hr IV BOLUS ONE Stop: 08/09/25 03:47 Last Infusion: 08/09/25 06:29 Dose: Infused Documented By: Admin: 08/09/25 03:14 Dose: 1,000 mls/hr Documented By: MATTHEW POTASSIUM CHLORIDE IN WATER (Potassium Cl 10 Meq/100 Ml Clair) 10 meq in 100 mls @ 100 mls/hr IV Q1H JIMMIE Stop: 08/09/25 05:59 Last Infusion: 08/09/25 06:25 Dose: Infused Documented By: Admin: 08/09/25 05:15 Dose: 100 mls/hr Documented By: Infusion: 08/09/25 05:15 Dose: Infused Documented By: Admin: 08/09/25 04:16 Dose: 100 mls/hr Documented By: LORENA Potassium Chloride (Potassium Chloride 20 Meq/15 Ml Udc) 40 meq PO NOW ONE Stop: 08/09/25 03:55 Last Admin: 08/09/25 04:16 Dose: 40 meq Documented By: LORENA Vital Signs Vital signs: Vital Signs - 8 hr 08/09/25 01:05 08/09/25 01:39 08/09/25 01:39 Temperature 97.5 F L Pulse Rate 72 69 Respiratory Rate 16 Blood Pressure 86/52 L 101/62 Pulse Oximetry 95 93 Oxygen Delivery Method Room Air 08/09/25 02:00 08/09/25 02:00 08/09/25 02:30 Temperature Pulse Rate 63 Respiratory Rate 20 Blood Pressure 114/71 84/55 L Pulse Oximetry 91 Oxygen Delivery Method 08/09/25 02:30 08/09/25 03:00 08/09/25 03:00 Temperature Pulse Rate 66 68 Respiratory Rate 21 Blood Pressure 85/50 L Pulse Oximetry 92 Oxygen Delivery Method 08/09/25 03:43 08/09/25 04:00 08/09/25 04:08 Temperature Pulse Rate 76 73 66 Respiratory Rate 19 24 24 Blood Pressure Pulse Oximetry 97 98 98 Oxygen Delivery Method Room Air 08/09/25 04:08 Temperature Pulse Rate Respiratory Rate Blood Pressure 109/57 L Pulse Oximetry Oxygen Delivery Method MDM - Fall Lab Data Attestation: I reviewed the patient's lab results. Lab results narrative: White blood cell count 50096, hemoglobin 13, platelets adequate. Glucose 136. Renal function normal, serum CO2 and sodium normal. Potassium 3.1 low. Liver functions and lipase normal. Troponin negative/unmeasurable. BNP not elevated. Ethanol negative. 08/09/25 01:40 08/09/25 01:40 Labs: Lab Results 08/09/25 08/09/25 Range/Units 01:40 04:00 WBC 10.7 (4.5-11.0) X10^3/uL RBC 4.79 (4.0-5.2) X10^6/uL Hgb 13.0 (12.0-16.0) g/dL Hct 39.0 (36-46) % MCV 81.5 (80-100) fL MCH 27.2 (26-34) PG MCHC 33.3 (30-36) % RDW 13.7 (11.6-14.8) % Plt Count 353 (150-400) X10^3/uL Neut % (Auto) 58.4 (50-75) % Lymph % (Auto) 31.6 (25-40) % [place] % (Auto) 6.0 (3-14) % Eos % (Auto) 2.9 (2-4) % Baso % (Auto) 1.1 (0-2) % Neut # (Auto) 6200 (4507-4897) /uL Lymph # (Auto) 3400 (6422-5016) /uL [place] # (Auto) 600 (0-900) /uL Eos # (Auto) 300 (0-450) /uL Baso # (Auto) 100 (0-100) /uL PT 12.3 (9.4-12.5) SECONDS INR 1.1 (0.9-1.3) APTT 27 (25.1-36.5) SECONDS Sodium 137 (137-145) mmol/L Potassium 3.1 L (3.4-5.1) mmol/L Chloride 103 (98-107) mmol/L Carbon Dioxide 23 (22-32) mmol/L BUN 9 (7-17) mg/dL Creatinine 0.87 (0.52-1.04) mg/dL Estimated GFR > 60 (>60) mL/min BUN/Creatinine Ratio 10.3 (6-22) Glucose 136 H (70-99) mg/dL Calcium 9.0 (8.4-10.2) mg/dL Magnesium 1.8 (1.6-2.3) mg/dL Total Bilirubin 0.3 (0.2-1.3) mg/dL AST 22 (14-36) IU/L ALT 25 (<35) IU/L Alkaline Phosphatase 86 (38-126) U/L Total Creatine Kinase 58 (30-135) U/L Troponin I < 0.012 < 0.012 (0.01-0.034) ng/mL NT-Pro-B Natriuret Pep 109 (<125) pg/mL Total Protein 7.5 (6.3-8.2) g/dL Albumin 4.3 (3.5-5.0) g/dL Globulin 3.2 (1.7-4.1) g/dL Albumin/Globulin Ratio 1.3 (1.0-2.8) Lipase 41 (23-300) U/L Ethyl Alcohol < 10 (<10) mg/dL ECG Data Attestation: I personally reviewed and interpreted this ECG as follows: Interpretation: 0224, normal sinus rhythm with rate of 70, no obvious ST segment elevation or depression changes. AL 172, QRS 98, QTC 460. MDM Narrative Medical decision making narrative: 39-year-old female with extensive psychiatric and substance abuse history, had possible syncopal episode from standing position, struck her head, with subsequent upper mid lower back pain, also with some chest discomfort that is unclear if it proceeded the syncopal episode or with subsequent to the fall. Labs pending. CT head, spine, chest abdomen and pelvis. Moving neck well [id number] without posterior tenderness. We will hold C-spine imaging for now. Chest x-ray ordered from triage, no acute changes. See tele radiology report. EKG shows normal sinus rhythm with rate of 70, no obvious ischemic changes, normal intervals. Lab data: White blood cell count 90845, hemoglobin 13, platelets adequate. Glucose 136. Renal function normal, serum CO2 and sodium normal. Potassium 3.1 low. Liver functions and lipase normal. Troponin negative/unmeasurable. BNP not elevated. Ethanol negative. CT head noncontrast. No acute changes. See tele radiology report. CT angiogram chest with contrast. No pulmonary embolus, no aortic dissection/aneurysm, no mention of any infiltrates. No spinal paloma injuries mentioned. See tele radiology report. CT abdomen and pelvis with contrast. No acute findings. Gallstones noted in gallbladder lumen. No spinal paloma injuries mentioned. See tele radiology report. IV/oral potassium repletion. Repeat troponin also negative/unmeasurable. Ambulated, took oral potassium fluids, improved symptoms. Feels improved. DC home with family, advised to recheck potassium level and sysmptoms with PCP in clinic later this week. Return precautions discussed. Discharge Plan Departure Patient Disposition: Home Clinical Impression: Near syncope, Hypokalemia, Back strain Activity Restrictions/Additional Instructions: Near syncopal episode of unclear cause. Low potassium level noted, IV and oral repletion given. CT scanning head, chest, abdomen, pelvis scanning showed no acute process. EKG and blood testing not suggestive of heart attack at this time. Cardiac monitoring reassuring, improvement in heart rate. Blood pressure improved with IV fluids. Consider recheck of your potassium level in follow up. History of prior cyclobenzaprine muscle relaxant use, you have muscle relaxant at home, take chronic regular medications as planned. Follow up with your regular doctor later this week and close follow up. Return to this/nearest emergency department for any change worsening symptoms or any concerns prior. Chart history of prior opiate use, naloxone nasal spray prescribed in case it is needed for treatment of opiate related overdose at some point in the future. Prescriptions: New naloxone 4 mg/actuation spray,non-aerosol 4 mg intranasal Q2M PRN (Reason: opioid overdose) Qty: 2 0RF Rx Instructions: spray 1 dose into ONE nostril; alternate nostrils w each dose until help arrives No Action buprenorphine-naloxone 8-2 mg tablet, sublingual 1 tab sublingual DAILY PRN propranolol 20 mg tablet 20 mg PO 3XD paliperidone 6 mg tablet extended release 24hr 6 mg PO ONCE PM amitriptyline 150 mg tablet 150 mg PO ONCE PM hydroxyzine pamoate 100 mg capsule 100 mg PO 3XD lisdexamfetamine [Vyvanse] 30 mg capsule 30 mg PO DAILY nicotine 7 mg/24 hr patch 24 hour 1 patch transdermal Q24H Qty: 14 3RF trazodone 150 mg tablet 150 mg PO ONCE PM Qty: 90 0RF cetirizine 10 mg tablet 10 mg PO DAILY PRN (Reason: for allergies) Qty: 90 4RF famotidine 10 mg tablet 10 mg PO DAILY PRN (Reason: for heartburn) Qty: 60 2RF meloxicam 15 mg tablet 15 mg PO DAILY Qty: 90 2RF cyclobenzaprine 10 mg tablet 10 mg PO TID PRN (Reason: muscle spasm) Qty: 90 4RF naloxone [Narcan] 4 mg/actuation spray,non-aerosol 4 mg intranasal Q2M PRN (Reason: opioid overdose) Qty: 2 2RF Rx Instructions: spray 1 dose into ONE nostril; alternate nostrils w each dose until help arrives Referrals: Chichi Donovan MD [Primary Care Provider, Family Practice] Stand Alone Forms: Patient Portal/API
[2025-08-09 02:48] LABS: Albumin 4.3 g/dL (3.5-5.0); Albumin Globulin Ratio 1.3 (1.0-2.8); Calcium 9.0 mg/dL (8.4-10.2); Chloride 103 mmol/L (98-107); Globulin 3.2 g/dL (1.7-4.1); Glucose 136 mg/dL (70-99); Lipase 41 U/L (23-300); Magnesium 1.8 mg/dL (1.6-2.3); Potassium 3.1 mmol/L (3.4-5.1); Sodium 137 mmol/L (137-145); Total Protein 7.5 g/dL (6.3-8.2)
--- NOTE | 2025-08-09 02:55 | DI.CT.S_ITS ---
PROCEDURE: CT ANGIO CHEST PE PROTOCOL INDICATIONS: syncope, back chest pain TECHNIQUE: After the administration of intravenous contrast, 2 mm thick sections acquired from the pulmonary apices to the posterior costophrenic angles. 3-dimensional maximum intensity projection (MIP) coronal and sagittal reformats were then acquired through the thorax. For radiation dose reduction, the following was used: automated exposure control, adjustment of mA and/or kV according to patient size. COMPARISON: [facility], CT, CT ABDOMEN PELVIS W CON, 08/25/2023, 10:49. [facility], US, US PELVIC COMPLETE, 10/29/2024, 15:38. FINDINGS: Image quality: Diagnostic. Pulmonary arteries: Pulmonary arteries are normal in size, and demonstrate no intraluminal filling defects to suggest central pulmonary embolism. Lower Neck: No enlarged lymph nodes. Thyroid: No thyroid nodules which require sonographic follow up, per consensus guidelines. Axillae: No enlarged lymph nodes. Chest Wall: Unremarkable. Bones: Diffuse mid thoracic vertebral body. No blastic or lytic osseous lesions. Lungs and Pleura: No pneumothorax or pleural effusions. No consolidation or suspicious nodules. Heart: Heart size is normal. No pericardial effusion. Thoracic Vessels: No aortic aneurysm. Mediastinum and [place]: No enlarged lymph nodes. Esophagus: No wall thickening. No hiatal hernia. Upper Abdomen: Visualized upper abdomen solid organs and bowel loops appear normal. IMPRESSION: No pulmonary embolus. No acute cardiopulmonary process. Agree with preliminary interpretation by [facility]. Dictated by: Екатерина Nation M.D. on 08/09/2025 at 8:37 Approved by: Екатерина Nation M.D. on 08/09/2025 at 8:44
--- NOTE | 2025-08-09 02:56 | DI.CT.S_ITS ---
PROCEDURE: CT ABDOMEN PELVIS W CON INDICATIONS: back pain fall, syncope TECHNIQUE: After the administration of intravenous contrast, axial sections acquired from the lung bases to the pubic symphysis. Coronal and sagittal reformats were performed. For radiation dose reduction, the following was used: automated exposure control, adjustment of mA and/or kV according to patient size. COMPARISON: [facility], CT, CT ABDOMEN PELVIS W CON, 08/25/2023, 10:49. FINDINGS: Image quality: Diagnostic. Lower Chest: Incidental dependent atelectasis. Otherwise, unremarkable. ABDOMEN: Liver: No solid mass. Gallbladder: Gallstones are noted in the contracted gallbladder. Biliary ducts: No biliary dilation. Pancreas: No ductal dilation. Spleen: Size is within normal limits. Adrenal Glands: No adrenal nodules. Kidneys and Ureters: No hydronephrosis. No solid mass. No complex renal cystic lesion which requires follow up. Stomach and Bowel: Normal colonic caliber, without significant wall thickening. Normal appendix. Peritoneum: No abnormal intraperitoneal fluid. No free air. Ventral Wall: No significant ventral hernia. Abdominal Nodes: No retroperitoneal or mesenteric adenopathy by size criteria. Vessels: Aorta and inferior vena cava are normal in size. PELVIS: Pelvic Organs: Unremarkable. Bladder: No bladder wall thickening, accounting for underdistention. Pelvic Nodes: No enlarged lymph nodes. Miscellaneous: No inguinal hernias are seen. Bones: No aggressive osseous abnormality. Mild multilevel degenerative disc disease noted. No acute fracture. IMPRESSION: No solid organ injury. Cholelithiasis without inflammatory changes concerning for acute cholecystitis. Dictated by: Екатерина Nation M.D. on 08/09/2025 at 8:45 Approved by: Екатерина Nation M.D. on 08/09/2025 at 8:50
--- NOTE | 2025-08-09 02:56 | DI.CT.S_ITS ---
PROCEDURE: CT HEAD/BRAIN WO CON INDICATIONS: headache fall TECHNIQUE: Noncontrast 4.5 mm thick angled axial sections acquired from the foramen magnum to the vertex, with coronal and sagittal reformats. For radiation dose reduction, the following was used: automated exposure control, adjustment of mA and/or kV according to patient size. COMPARISON: None. FINDINGS: Image quality: Diagnostic. CSF spaces: Basal cisterns are patent. No extra-axial fluid collections. Ventricles are normal in size and shape. Brain: No midline shift. No intracranial mass effect or hemorrhage. Lehman- white matter interface is normal. Skull and face: Calvarium and visualized facial bones are intact, without suspicious lesions. Sinuses: Mastoids are clear. Moderate paranasal sinus mucosal thickening with air-fluid level in the right maxillary sinus and partial opacification of the bilateral ethmoid sinuses. IMPRESSION: No acute intracranial pathology. Sinus mucosal disease most severely affecting the ethmoid and maxillary sinuses. Dictated by: Екатерина Nation M.D. on 08/09/2025 at 8:21 Approved by: Екатерина Nation M.D. on 08/09/2025 at 8:25
[2025-08-09 03:00] LABS: NT-proBNP (BNP-Adult 18+) 109 pg/mL (<125); Troponin I < 0.012 ng/mL (0.01-0.034)
[2025-08-09] MEDS: SODIUM CHLORIDE 0.9% 1,000 ML 1000 ML IV (03:14)
[2025-08-09 03:15] LABS: INR 1.1 (0.9-1.3); Prothrombin Time 12.3 SECONDS (9.4-12.5)
[2025-08-09 03:17] LABS: PTT Partial Thromboplastin Tim 27 SECONDS (25.1-36.5)
[2025-08-09 03:35] LABS: Ethanol (ETOH) < 10 mg/dL (<10)
[2025-08-09] MEDS: POTASSIUM CHLORIDE IN WATER 10 MEQ/100 ML PIGGYBACK 100 MEQ IV ×2 (04:16→05:15)
[2025-08-09] MEDS: POTASSIUM CHLORIDE 20 MEQ/15 ML UDC 40 MEQ PO (04:16)
[2025-08-09 04:32] LABS: Troponin I < 0.012 ng/mL (0.01-0.034)
== END 2025-08-09 06:34 | disposition home or self-care (01) ==
PROVIDERS: Emergency Provider Emergency Medicine; Family Provider Family Medicine; PCP Family Medicine
DX: R55 Syncope and collapse (principal); R42 Dizziness and giddiness; E87.6 Hypokalemia; S39.012A Strain of muscle, fascia and tendon of lower back, initial encounter; S09.90XA Unspecified injury of head, initial encounter; M54.2 Cervicalgia; R07.9 Chest pain, unspecified
CPT/HCPCS: 36415; 70450; 71045; 71275; 74177; 80053; 80320; 82550; 83690; 83735; 83880; 84484; 85025; 85610; 85730; 93005; 96361; 96365; 96366; 99284; J7030; Q9967